=== PATIENT | female | born 1950 | race Caucasian/White ===

== ENCOUNTER 2017-06-05 10:22 | Emergency (ER) | payer MEDICAID | END 2017-06-05 14:39 | disposition home or self-care (01) | LOC: FTE 10:22 | DX: D17.1 Benign lipomatous neoplasm of skin and subcutaneous tissue of trunk (principal); F17.210 Nicotine dependence, cigarettes, uncomplicated | CPT/HCPCS: 99283; Z7502 ==

== ENCOUNTER 2017-08-31 08:26 | Day surgery (SDC) | payer BC, MEDICAID ==
[~2017-08-31 08:26] MED LIST: CEFAZOLIN 1 GM INJ; CEFAZOLIN 2 GM/50 ML (PMX) 50 ML IVPB; METOCLOPRAMIDE 10 MG INJ; SOD CHLORIDE 0.9% 1,000 ML IV
[2017-08-31 09:40] LABS: ADD MAN DIFF? NO
[2017-08-31 09:45] LABS: WHITE BLOOD COUNT 9.2 10^3/ul (4.8-10.8)
[2017-08-31 09:45] LABS: BASOPHIL # 0.1 10^3/ul (0.0-0.1); BASOPHILS % 0.7 % (0.0-2.0); EOSINOPHILS # 0.7 10^3/ul (0.0-0.5); EOSINOPHILS % 7.2 % (0.0-7.0); HEMATOCRIT 34.8 % (37.0-47.0); HEMOGLOBIN 11.5 g/dl (12.0-16.0); LYMPHOCYTES # 2.8 10^3/ul (0.8-2.9); LYMPHOCYTES % 29.8 % (15.0-51.0); MEAN CORPUSCULAR HEMOGLOBIN 28.8 pg (29.0-33.0); MEAN PLATELET VOLUME 9.6 fl (7.4-10.4); MONOCYTE # 0.6 10^3/ul (0.3-0.9); NEUTROPHIL # 5.2 10^3/ul (1.6-7.5); NEUTROPHILS % 56.1 % (39.0-77.0); PLATELET COUNT 391 10^3/UL (140-415); RED CELL DISTRIBUTION WIDTH 12.7 % (11.5-14.5)
[2017-08-31 09:59] LABS: INR 0.83; PARTIAL THROMBOPLASTIN TIME 32.9 Sec (25.0-35.0); PROTIME 11.5 Sec (11.9-14.9); PT RATIO 0.9
[2017-08-31 10:01] LABS: ALANINE AMINOTRANSFERASE 21 IU/L (13-69); ALBUMIN 3.9 g/dl (3.3-4.9); ALKALINE PHOSPHATASE 103 IU/L (42-121); ANION GAP 15 (8-16); ASPARTATE AMINO TRANSFERASE 28 IU/L (15-46); BILIRUBIN,INDIRECT 0.2 mg/dl (0-1.1); BILIRUBIN,TOTAL 0.2 mg/dl (0.2-1.3); CARBON DIOXIDE 29 mmol/L (21-31); CHLORIDE 102 mmol/L (97-110); GLUCOSE 117 mg/dl (70-220); TOTAL PROTEIN 6.9 g/dl (6.1-8.1)
[2017-08-31 10:02] LABS: BLOOD UREA NITROGEN 12 mg/dl (7-20); CALCIUM 9.2 mg/dl (8.4-10.2); CREATININE 0.59 mg/dl (0.44-1.00); POTASSIUM 4.3 mmol/L (3.5-5.1); SODIUM 142 mmol/L (135-144)
[2017-08-31] MEDS ORDERED: MIDAZOLAM 1 MG/ML 2 ML INJ (10:22)
[2017-08-31] MEDS ORDERED: FENTAnyl 50 MCG/ML VIAL (10:31)
[2017-08-31] MEDS ORDERED: PROPOFOL 20 ML (11:26)
[2017-08-31] MEDS ORDERED: ONDANSETRON 4 MG INJ (11:27)
[2017-08-31] MEDS ORDERED: LIDOCAINE 100 MG SYRINGE (11:27)
[2017-08-31] MEDS: LIDOCAINE 1%/EPI 30 ML INJ (12:27)
[2017-08-31] MEDS ORDERED: ONDANSETRON 4 MG INJ IV (12:30)
[2017-08-31] MEDS ORDERED: KETOROLAC 30 MG INJ IV (12:30)
[2017-08-31] MEDS ORDERED: MEPERIDINE 25 MG INJ IV (12:30)
[2017-08-31] MEDS ORDERED: HYDROmorphONE (0.2 MG/ML) 10ML SYG IV ×2 (12:30)
[2017-08-31] MEDS ORDERED: LABETALOL HCL 20MG INJ IV (12:30)
[2017-08-31] MEDS ORDERED: FENTAnyl 50 MCG/ML VIAL IV ×2 (12:30)
[2017-08-31] MEDS ORDERED: DIPHENHYDRAMINE 50 MG INJ IV (12:30)
[2017-08-31] MEDS ORDERED: hydrALAzine 20 MG INJ IV (12:30)
== END 2017-08-31 14:00 | disposition home or self-care (01) ==
LOC: SDS 08:26
DX: L72.0 Epidermal cyst (principal); E11.9 Type 2 diabetes mellitus without complications; I10 Essential (primary) hypertension; J45.909 Unspecified asthma, uncomplicated
CPT/HCPCS: 14000; 71045; 80053; 82962; 85025; 85610; 85730; 88307; 93005